=== PATIENT | male | born 1995 | race Caucasian/White ===

== ENCOUNTER 2021-07-22 14:59 | Emergency (ER) | payer BC, SELFPAY ==
[2021-07-22 15:10] VITALS: BP 136/100; PULSE 101; RESP 20; TEMP 37.2; O2SAT 100; BMI 17.8
--- NOTE | 2021-07-22 15:47 | HMH.EDUTC ---
[facility] [place] Disposition Clinical Impression: Lymphangitis Bug bite Qualifiers: Encounter type: initial encounter Qualified Code(s): W57.XXXA - Bitten or stung by nonvenomous insect and other nonvenomous arthropods, initial encounter Cellulitis Qualifiers: Site of cellulitis: extremity Site of cellulitis of extremity: upper extremity Laterality: right Qualified Code(s): L03.113 - Cellulitis of right upper limb Disposition: Home, Self-Care Condition on Discharge: Good Instructions: DI for Cellulitis -- Adult Additional Instructions: Take all antibiotics as prescribed until gone. Warm compresses to arm. We outlined the redness with a marker - watch for spreading infection Return to clinic or ER if fever, pain, worsening infection, headache/vomiting/malaise, etc Prescriptions: clindamycin HCL [Clindamycin HCl] 300 mg PO TID 10 Days #30 cap Transmission Status: Pending to [facility] Naproxen [Naproxen 500mg tab] 500 mg PO BID 10 Days #20 tab Transmission Status: Pending to [facility] predniSONE [Prednisone 20mg Tab] 20 mg PO BID 5 Days #10 tab Transmission Status: Pending to [facility] Referrals: Esvin Rico MD [Primary Care Provider] - Time of Disposition: 16:12 Medical Decision Making - Ronn Inquiry Pt receiving controlled substance: No Vital Signs: 07/22/21 15:10 Temperature 99.0 F Temperature Source Oral Pulse Rate [Right] 101 H Respiratory Rate 20 Blood Pressure [Right Arm] 136/100 H Blood Pressure Mean [Right Arm] 112 Blood Pressure Source [Right Arm] Automatic Cuff Blood Pressure Position [Right Arm] Sitting 02 Sat by Pulse Oximetry 100 Oxygen Delivery Method Room Air Orders (Tests/Meds): ED MEDICATIONS Discontinued Medications Generic Name Dose Route Start Last Admin Trade Name Freq PRN Reason Stop Dose Admin Ceftriaxone Sodium 1 gm 07/22/21 15:54 Ceftriaxone 1gm Vial IM 07/22/21 15:55 ONCE ONE Lidocaine HCl 0 ml 07/22/21 15:54 Lidocaine 1% 5ml Pf Vial IM 07/22/21 15:55 ONCE ONE [facility] [place] HPI - General Stated complaint: spider bite 07/21 rt arm Time Seen by Provider: 07/22/21 15:54 Mode of Arrival: Ambulatory Source of Information: Patient Limitations: No Limitations Description of Symptoms (Recalled from Triage Doc. by RN): PATIENT C/O INSECT BITE TO RIGHT ARM WITH RED STREAK NOTED FROM BITE UP TO ARM PIT. STATES BITE HAPPENED 2 DAYS AGO HEENT Symptoms (Recalled from RN notes): No Resp Symptoms (Recalled from RN notes): No Skin Symptoms (Recalled from RN notes): Yes MS Symptoms (Recalled from RN notes): No Functional Status (Recalled from RN notes): WNL - History of Present Illness Provider Complaint: Unknown bug bite to right elbow 2 days ago after hanging a hammock. It was itchy and a bit raised. After taking a nap today, he noticed that the redness is spreading towards his right armpit. No fever, no headache, no nausea/vomiting, no swelling, no pain. He does feel a little off but would like to go to work tonight if he is allowed to do so. Onset (ago): day(s) (2) Location: right, upper extremity Radiation: extremity Severity: moderate Severity scale (1-10): 5 Consistency: constant Relieving factors: none Exacerbating factors: none Associated symptoms: denies other symptoms Treatments prior to arrival: none - Related Data Previous Rx's Medication Instructions Recorded Naproxen [Naproxen 500mg tab] 500 mg PO BID 10 Days #20 tab 07/22/21 clindamycin HCL [Clindamycin HCl] 300 mg PO TID 10 Days #30 cap 07/22/21 predniSONE [Prednisone 20mg 20 mg PO BID 5 Days #10 tab 07/22/21 Tab] Allergies Allergy/AdvReac Type Severity Reaction Status Date / Time No Known Allergies Allergy Verified 07/22/21 15:25 - Worker's Comp Is this a Worker's Comp case?: No [facility] History - Hepatitis A Screen Drug use history?: No High risk sexual behaviors?: No History of sexually transmitted infection?: No Cur
[2021-07-22 16:06] VITALS: BP 136/100; PULSE 101; RESP 20; TEMP 37.2; O2SAT 100
== END 2021-07-22 16:20 | disposition home or self-care (01) ==
PROVIDERS: Emergency Provider Physician Assistant; PCP Family Medicine
DX: L03.113 Cellulitis of right upper limb (principal); W57.XXXA Bitten or stung by nonvenomous insect and other nonvenomous arthropods, initial encounter
CPT/HCPCS: 96372; 99213; G0463; J0696

== ENCOUNTER 2021-07-23 02:44 | Emergency (ER) | payer BC, SELFPAY ==
[2021-07-23 02:58] VITALS: BP 118/74; PULSE 75; RESP 16; TEMP 36.7; O2SAT 99
--- NOTE | 2021-07-23 03:00 | PC.NURSE ---
pt taking prescribed medications that [facility] prescribed. They marked the size of the redness and he states they told me to come back if the redness got outside of the lines . Redness is only just outside the line proximally. Pt educated to continued course of tx, warm compresses, and return is swelling worsens & redness increases more.
== END 2021-07-23 03:00 | disposition left against medical advice (07) ==
LOC: ER 02:52
PROVIDERS: Emergency Provider Emergency Medicine; PCP Nurse Practitioner Family
DX: Z53.21 Procedure and treatment not carried out due to patient leaving prior to being seen by health care provider (principal); L03.113 Cellulitis of right upper limb
CPT/HCPCS: 99211

== ENCOUNTER 2021-12-26 19:43 | Emergency (ER) | payer BC, SELFPAY ==
[2021-12-26 19:45] VITALS: BP 115/69; PULSE 75; RESP 18; TEMP 36.8; O2SAT 98; BMI 19.1
--- NOTE | 2021-12-26 21:25 | HMH.EDANIB ---
ED Disposition Clinical Impression: Laceration, Rabies, need for prophylactic vaccination against Dog bite Qualifiers: Encounter type: initial encounter Qualified Code(s): W54.0XXA - Bitten by dog, initial encounter Disposition: Home, Self-Care Condition on Discharge: Good Instructions: Animal Bites Additional Instructions: use meds and see pcp for follow up Prescriptions: Amoxicillin/Potassium Clav [Augmentin 500mg tab] 500 mg PO TID #30 tab Transmission Status: Pending to [facility] Referrals: Kalyani Trujillo APRN [Primary Care Provider] - - Critical Care Critical Care Time: No Attestation: On 12/26/21, the high probability of a clinically significant, sudden or life threatening deterioration of the following system(s) required my full and direct attention, intervention and personal management. The time I documented below is in addition to time spent performing reported procedures but includes the following listed in this critical care notation. Medical Decision Making - Medical Records Medical records reviewed: Yes: I reviewed the patient's medical records. - Ronn Inquiry Pt receiving controlled substance: No Vital Signs: 12/26/21 19:45 Temperature 98.2 F Temperature Source Oral Pulse Rate [Right] 75 Respiratory Rate 18 Blood Pressure [Right Arm] 115/69 Blood Pressure Mean [Right Arm] 84 Blood Pressure Source [Right Arm] Automatic Cuff 02 Sat by Pulse Oximetry 98 Oxygen Delivery Method Room Air Orders (Tests/Meds): ED MEDICATIONS Discontinued Medications Generic Name Dose Route Start Last Admin Trade Name Freq PRN Reason Stop Dose Admin Rabies Immune Globulin 1,350 unit 12/26/21 20:59 Rabies Immune Globulin/Pf 300 Unit/Ml Vial IM 12/26/21 21:00 ONCE ONE Rabies Vaccine 2.5 unit 12/26/21 21:03 Rabies Vaccine (Pcec)/Pf 2.5 Unit Vial IM 12/26/21 21:04 .ONCE ONE Tetanus/Reduced Diphtheria/Acell Pertussis 0.5 ml 12/26/21 20:59 Tet/Diphth/Pert-Adult 0.5ml Syringe IM 12/26/21 21:00 .ONCE ONE Medical Decision Narrative: dog bite - no vaccine and will give rabies series Animal Bite HPI - General Chief Complaint: Animal Bite Stated Complaint: wc 12/26@1830 DOG BIT CALF Time Seen by Provider: 12/26/21 21:25 Mode of Arrival: Family Vehicle Source of Information: Patient, Medical Record Limitations: No Limitations Description of Symptoms (Recalled from ER Triage Doc. 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 Bruise and scrape to R calf. Puncture wound to L calf. He is not UTD on tetanus and dog is not UTD on rabies vaccine. 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 He cleaned the wounds with an alcohol wipe. - History of Present Illness HPI narrative: dog bite lt post calf - tonight - MD complaint: animal bite Onset (ago): hour(s) Animal: dog Description of animal: household pet Mechanism: bite Left: lower leg Context: unprovoked Associated symptoms: none - Related Data Patient tetanus UTD: No Previous Rx's Medication Instructions Recorded Amoxicillin/Potassium Clav 500 mg PO TID #30 tab 12/26/21 [Augmentin 500mg tab] Allergies Allergy/AdvReac Type Severity Reaction Status Date / Time No Known Allergies Allergy Verified 07/22/21 15:25 [facility] History - Hepatitis A Screen Attestation statement:: This patient has been screened for Hepatitis A risk factors. I have reviewed the patient's past medical history: Yes ROS Obtained: Yes All systems reviewed & no additional complaints - Constitutional Constitutional: Denies fever(s) - Eyes Eyes: Denies change in vision - ENT Ears, Nose, Mouth, and Throat: Denies sore throat - Cardiovascular Cardiovascular: Denies chest pain - Respiratory Respiratory: Denies shortness of breath - Gastrointestinal Gastrointestingal: Denies: abdominal pain - Genitourinary Male Genitourinary: Denie
[2021-12-26 22:08] VITALS: BP 125/78; PULSE 80; RESP 17; TEMP 36.6; O2SAT 98
== END 2021-12-26 22:10 | disposition home or self-care (01) ==
PROVIDERS: Emergency Provider Emergency Medicine; PCP Nurse Practitioner Family
DX: S81.812A Laceration without foreign body, left lower leg, initial encounter (principal); Z23 Encounter for immunization; W54.0XXA Bitten by dog, initial encounter
CPT/HCPCS: 12001; 90375; 90471; 90675; 90715; 96372; 99284

== ENCOUNTER 2022-01-05 16:41 | Emergency (ER) | payer OTHER, BC, SELFPAY ==
[2022-01-05 16:56] VITALS: BP 128/73; PULSE 80; RESP 16; TEMP 37; O2SAT 97; BMI 19.2
[2022-01-05 16:58] VITALS: BP 128/73; PULSE 80; RESP 16; TEMP 37
== END 2022-01-05 16:59 | disposition home or self-care (01) ==
PROVIDERS: Emergency Provider Nurse Practitioner Family; PCP Nurse Practitioner Family
DX: S81.811A Laceration without foreign body, right lower leg, initial encounter (principal); W54.0XXA Bitten by dog, initial encounter; Y93.89 Activity, other specified; Y92.009 Unspecified place in unspecified non-institutional (private) residence as the place of occurrence of the external cause; Y99.0 Civilian activity done for income or pay; Z23 Encounter for immunization
CPT/HCPCS: 12031; 99213; G0463

== ENCOUNTER → 2022-05-03 15:10 | Outpatient (CLI) | payer BC, SELFPAY | PROVIDERS: PCP Nurse Practitioner Family; Visit Provider Nurse Practitioner Family | DX: U07.1 COVID-19 (principal); R68.89 Other general symptoms and signs | CPT/HCPCS: C9803; U0003; U0005 ==